=== PATIENT | female | born 1985 | race American Indian/Alaskan Native ===

== ENCOUNTER 2021-04-04 10:17 | Outpatient (CLI) | payer SELFPAY ==
[2021-04-04] MEDS ORDERED: LACTATED RINGERS 500 ML IV ONE (11:00)
[2021-04-04] MEDS ORDERED: TERBUTALINE 1 MG/1 ML INJ IVP ONE (11:23)
[2021-04-04 11:49] LABS: Basophils % (Auto) 0.2 % (0.0-1.8); Eosinophils # (Auto) 0.1 K/mm3 (0.0-0.4); Eosinophils % (Auto) 0.8 % (0.0-4.3); Hematocrit 47.5 % (30.3-42.9); Hemoglobin 15.4 gm/dl (10.1-14.3); Lymphocytes # (Auto) 1.7 K/mm3 (1.2-5.4); Lymphocytes % (Auto) 19.9 % (13.4-35.0); Mean Corpuscular HGB Conc 33 % (30-34); Mean Corpuscular Volume 85 fl (79-97); Monocytes # (Auto) 0.7 K/mm3 (0.0-0.8); Monocytes % (Auto) 7.8 % (0.0-7.3); Platelet Count 157 K/mm3 (140-440); Red Blood Count 5.61 M/mm3 (3.65-5.03)
--- NOTE | 2021-04-04 12:40 | Ultrasound Report ---
ULTRASOUND BIOPHYSICAL PROFILE, 04/04/2021 INDICATION / CLINICAL INFORMATION: Evaluate well-being. COMPARISON: None FINDINGS: BREATHING MOVEMENT = 2 GROSS BODY MOVEMENT = 2 TONE = 2 QUALITATIVE AMNIOTIC FLUID VOLUME = 2 TOTAL BIOPHYSICAL SCORE = 10/26 AMNIOTIC FLUID INDEX (cm) = 8.2 PRESENTATION: Cephalic. HEART RATE (beats per minute): 166 IMPRESSION: 1. biophysical profile = 10/26 Signer Name: Birgit Small MD Signed: 04/04/2021 12:36 PM Workstation Name: [id number]
--- NOTE | 2021-04-04 13:29 | Ultrasound Report ---
ULTRASOUND OBSTETRIC COMPLETE INDICATION / CLINICAL INFORMATION: ENEDINA, placenta location, EFW. Clinical Gestational Age (GA) in weeks, days: 36 weeks 0 days TECHNIQUE: Transabdominal. COMPARISON: None available. FINDINGS: NUMBER: Single PRESENTATION: cephalic PLACENTA: anterior and free of the os. No evidence of abruption. MATERNAL ADNEXA: No significant abnormality. AMNIOTIC FLUID VOLUME: normal AMNIOTIC FLUID INDEX (ENEDINA) in cm (if measured): 8.2 MEASUREMENTS: - Biparietal Diameter = 8.3 cm = 33 weeks 3 days - Head Circumference = 31.4 cm = 35 weeks 2 days - Abdominal Circumference = 29.3 cm = 33 weeks 2 days - Femur Length = 7.1 cm = 36 weeks 1 day - Estimated Weight (in grams, if calculated): 2408 - Heart Rate (beats per minute): 147 ADDITIONAL FINDINGS: None. PERCENTILE ESTIMATED WEIGHT (if calculated): Not calculated AVERAGE ULTRASOUND AGE (AUA) in weeks, days = 34 weeks 4 days IMPRESSION: 1. Single intrauterine with AUA of 34 weeks 4 days. 2. No significant sonographic abnormality, as above. 3. ENEDINA measures 8.2 cm. 4. Anterior placenta. No evidence of placental abruption. Signer Name: Polo Elena MD Signed: 04/04/2021 1:24 PM Workstation Name: [employer] [id number]
== END 2021-04-04 13:18 | disposition home or self-care (01) ==
LOC: TRG 10:17 → APU 10:19 → TRG 13:18
PROVIDERS: ATTEND Student in an Organized Health Care Education/Training Program
DX: O46.93 Antepartum hemorrhage, unspecified, third trimester (principal); O62.9 Abnormality of forces of labor, unspecified; O09.523 Supervision of elderly multigravida, third trimester; O99.213 Obesity complicating pregnancy, third trimester; E66.9 Obesity, unspecified; Z3A.34 34 weeks gestation of pregnancy
CPT/HCPCS: 36415; 59025; 76816; 76819; 85025; 86850; 86900; 86901; 96360; 96372; J3105; J7120

== ENCOUNTER 2021-04-05 07:49 | Inpatient (IN) | payer SELFPAY ==
[2021-04-05] MEDS ORDERED: BICITRA ORAL LIQD 30ML PO ONE (10:00)
[2021-04-05] MEDS ORDERED: METOCLOPRAMIDE 10 MG/2 ML INJ IV ONE (10:00)
[2021-04-05] MEDS ORDERED: FAMOTIDINE 20 MG/2 ML INJ IV ONE (10:00)
[2021-04-05] MEDS ORDERED: OXYTOCIN DRIP 30 UNITS/500 ML BAG IV SCH ×2 (10:00→20:00)
[2021-04-05] MEDS ORDERED: ceFAZolin/Water 2 GM/20 ML 2 GM/20 ML SYRINGE IV NR (10:00)
[2021-04-05] MEDS ORDERED: LACTATED RINGERS 1,000 ML IV SCH (10:00)
[2021-04-05] MEDS ORDERED: ONDANSETRON 4 MG/2 ML INJ ONE (10:19)
--- NOTE | 2021-04-05 10:34 | Anesthesia Day of Surgery ---
Anesthesia Day of Surgery - Day of Surgery Patient Examined: Yes Patient H&P Reviewed: Yes Patient is NPO: No (0600 risk explained) Beta Blockers: No Cardiac Clearance: No Pulmonary Clearance: No Zhang's Test: Negative
--- NOTE | 2021-04-05 10:37 | Anesthesia Consultation ---
Anesthesia Consult and Med Hx Date of service: 04/05/21 - Airway Anesthetic Teeth Evaluation: Poor ROM Head & Neck: Adequate Mental/Hyoid Distance: Adequate Mallampati Class: Class II Intubation Access Assessment: Good - Pulmonary Exam CTA: Yes - Cardiac Exam Cardiac Exam: RRR - Pre-Operative Health Status ASA Pre-Surgery Classification: ASA3 Proposed Anesthetic Plan: Spinal - Pulmonary Hx Smoking: No Hx Asthma: No Hx Respiratory Symptoms: No SOB: No COPD: No Home Oxygen Therapy: No Hx Pneumonia: No Hx Sleep Apnea: No - Cardiovascular System Hx Hypertension: No Hx Coronary Artery Disease: No Hx Heart Attack/AMI: No Hx Angina: No Hx Percutaneous Transluminal Coronary Angioplasty (PTCA): No Hx Cardia Arrhythmia: Yes Hx Pacemaker: No Hx Internal Defibrillator: No Hx Valvular Heart Disease: No Hx Heart Murmur: No Hx Peripheral Vascular Disease: No - Central Nervous System Hx Neuromuscular Disorder: No Hx Seizures: No CVA: No Hx Back Pain: No Hx Psychiatric Problems: No - Gastrointestinal Hx Ulcer: No Hx Gastroesophageal Reflux Disease: No - Endocrine Hx Renal Disease: No Hx End Stage Renal Disease: No Hx Cirrhosis: No Hx Liver Disease: No Hx Insulin Dependent Diabetes: No Hx Non-Insulin Dependent Diabetes: No Hx Thyroid Disease: No Hx Hypothyroidism: No Hx Hyperthyroidism: Yes - Hematic Hx Anemia: No Hx Sickle Cell Disease: No - Other Systems Hx Alcohol Use: No Hx Substance Use: No Hx Cancer: No Hx Obesity: Yes
[2021-04-05 11:00] LABS: Eosinophils % (Auto) 0.9 % (0.0-4.3); Hematocrit 45.8 % (30.3-42.9); Hemoglobin 14.7 gm/dl (10.1-14.3); Mean Corpuscular HGB Conc 32 % (30-34); Mean Corpuscular Volume 85 fl (79-97); Monocytes # (Auto) 0.7 K/mm3 (0.0-0.8); Monocytes % (Auto) 7.3 % (0.0-7.3); Red Blood Count 5.37 M/mm3 (3.65-5.03); Red Cell Distribution Width 13.7 % (13.2-15.2)
[2021-04-05 11:04] LABS: Lymphocytes % (Auto) 14.5 % (13.4-35.0)
[2021-04-05 11:05] LABS: Basophils % (Auto) 0.4 % (0.0-1.8); Eosinophils # (Auto) 0.1 K/mm3 (0.0-0.4); Lymphocytes # (Auto) 1.5 K/mm3 (1.2-5.4)
--- NOTE | 2021-04-05 11:35 | History and Physical Report ---
History of Present Illness Date of examination: 04/05/21 Chief complaint: contractions, vaginal bleeding History of present illness: Pt is a 35 year old MIGUEL 04/24/21 by 10 adele mendoza who presents with vaginal bleeding and contractions. During her evaluation in triage she was found to be 4 /70/-2. She denies leakage of fluid and reports good movement. She has had care initially in [place] with limited records available for review, followed by two visits with Dr Niels Mondragon with limited records available for review on the patient's phone. Her GBS status is unknown. Past History Past Medical History: thyroid disease (hypothyroidism on levothyroxine 50 mcg daily ) Past Surgical History: section Social history: - Obstetrical History Expected Date of Delivery: 04/24/21 Actual Gestation: 37 Week(s) 2 Day(s) : 5 Para: 1 Hx # Term Pregnancies: 0 Number of Pregnancies: 1 Spontaneous Abortions: 3 Induced : 0 Number of Living Children: 1 Medications and Allergies Allergies Allergy/AdvReac Type Severity Reaction Status Date / Time No Known Allergies Allergy Verified 04/05/21 08:09 Active Meds: Active Medications Fentanyl (Fentanyl 100 Mcg/2 Ml Inj) 50 mcg IV ONCE ONE Stop: 04/05/21 11:34 Lactated Ringer's (Lactated Ringers) 1,000 mls @ 2,250 mls/hr IV PREOP KIM Stop: 04/06/21 10:27 Last Admin: 04/05/21 10:40 Dose: 2,250 mls/hr Oxytocin/Sodium Chloride (Pitocin/Ns 30 Unit/500ml) 30 units in 500 mls @ 0 mls/hr IV TITR KIM; Protocol Cefazolin Sodium (Ancef/Sterile Water 2 Gm/20 Ml) 2 gm in 20 mls @ 80 mls/hr IV PREOP NR; Protocol Stop: 04/06/21 23:59 Review of Systems All systems: negative - Vital Signs Vital signs: Vital Signs Pulse Resp BP Pulse Ox 110 H 18 110/74 96 04/05/21 09:54 04/05/21 09:54 04/05/21 09:54 04/05/21 09:54 Temp Pulse Resp BP Pulse Ox 98.1 F 109 H 18 110/74 94 04/05/21 10:12 04/05/21 11:32 04/05/21 09:54 04/05/21 09:54 04/05/21 11:32 - Physical Exam Breasts: Positive: deferred Abdomen: Positive: soft (obese, gravid ) Uterus: Positive: enlarged (gravid ) Extremities: Positive: edema (trace) - Obstetrical FHR: auscultation normal Uterine Contraction Monitor Mode: External Cervical Dilatation: 4 (per RN ) Uterine Contraction Pattern: Irregular Uterine Tone Measurement Phase: Resting Uterine Contraction Intensity: Strong/Firm Results Result Diagrams: 04/05/21 09:41 Abnormal lab results 04/05/21 Range/Units 09:41 RBC 5.37 H (3.65-5.03) M/mm3 Hgb 14.7 H (10.1-14.3) gm/dl Hct 45.8 H (30.3-42.9) % MCH 27 L (28-32) pg Seg Neutrophils % 76.9 H (40.0-70.0) % Seg Neutrophils # 7.9 H (1.8-7.7) K/mm3 All other labs normal. Assessment and Plan A: IUP at 37w2d Latent Labor Limited Care Hypothyroidism on Levothyroxine 50 mcg daily, last dose 04/05/21 H/o labor and delivery Previous x 1 Obesity GBS unknown Last meal: 6 am 04/05/21 P: Proceed with repeat section and other indicated procedures ~ 8 hrs after food ingestion. Plan surgery sooner for maternal or indications. Continue to closely monitor clinical status
[2021-04-05 12:16] LABS: Platelet Count 171 K/mm3 (140-440)
[2021-04-05] MEDS ORDERED: fentaNYL 100 MCG/2 ML INJ IV ONE ×2 (12:30→14:00)
--- NOTE | 2021-04-05 13:24 | Event Note ---
Date: 04/05/21 On-call physician just informed that this surgery has been delayed, secondary to an emergent section being performed by another provider.
[2021-04-05] MEDS ORDERED: LACTATED RINGERS 1,000 ML ONE (15:33)
[2021-04-05] MEDS ORDERED: PHENYLEPHRINE/NS 1,000 MCG/10 ML SYRINGE (OR USE) IV ONE (15:35)
[2021-04-05] MEDS ORDERED: CARBOPROST TROMETHAMINE 250 MCG/1 ML INJ IM ONE (15:52)
[2021-04-05] MEDS ORDERED: METHYLERGONOVINE MALEATE 0.2 MG/ML VIAL IM ONE ×2 (15:52→16:20)
[2021-04-05] MEDS ORDERED: miSOPROStol 200 MCG TAB ONE (15:57)
[2021-04-05] MEDS ORDERED: OXYTOCIN 10 UNIT/1 ML INJ ONE (16:23)
[2021-04-05] MEDS ORDERED: dexAMETHasone 20 MG/5 ML VIAL ONE (16:40)
[2021-04-05] MEDS ORDERED: BUPIVACAINE/PF (0.25%) 2.5 MG/ML 30 ML VIAL INFILTRATI ONE ×2 (16:40)
[2021-04-05] MEDS ORDERED: ACETAMINOPHEN 500 MG TAB ONE (17:07)
--- NOTE | 2021-04-05 17:30 | Progress Note ---
Spinal Anesthesia Block - Spinal Anesthesia Block Start Time: 15:00 Stop Time: 15:04 Performed by:: LYNETTE JON Procedure: Patient IDed, H&P reviewed, all questions and concerns were answered, and consent was signed. Timeout was performed at bedside. Patient in sitting position. Sterile prep and drape was performed. [3] ml of 1% lidocaine skin wheal at L[3]- L [4]. Needle introducer advanced. 24 gauge spinal needle advanced. Clear, free flowing CSF. negative blood, negative paresthesia. Spinal dose given. All needles removed. Patient tolerated procedure.
--- NOTE | 2021-04-05 17:38 | Procedure Note ---
OB Delivery Note - Delivery Date of Delivery: 04/05/21 Surgeon: STEVEN RAY Estimated blood loss: other (1399 mL) - Section Preop diagnosis: repeat , other (Vaginal Bleeding, Labor ) Postop diagnosis: same section procedure: section, repeat low transverse Disposition: PACU Complications: intra-op hemorrhage, uterine atony Narrative: Please see operative report - Infant A at 1 minute: 8 at 5 minutes: 9 Infant Gender: Female (2900g (6lb 6oz) @ 1525 pm)
--- NOTE | 2021-04-05 17:40 | Operative Report ---
Operative Report Operative Report: Date of procedure: April 05, 2021 Preoperative diagnosis: 1) IUP at 37w2d 2) Previous x 1 3) Vaginal Bleeding 4) Latent Labor Postoperative diagnosis: Same 5) Uterine Atony 6) Intraoperative Hemorrhage Procedure: Repeat low transverse section Surgeon: Maryellen Lainez M.D. Anesthesia: Regional Findings: 1) Viable female , Apgars 8 and 9, weight 2900 g, (6 lb 6 oz) in cephalic presentation. 2) Fibroid uterus; Normal appearing ovaries and tubes Estimated blood loss: 1399 mL IV fluids: 2900 mL Urine output: 300 mL, blood tinged prior to the procedure, and blood tinged at the end of the procedure Drains: Beyer to gravity Specimens: Placenta to pathology Complications:None. Counts correct x 3 Disposition: Stable to PACU Indication for procedure: Pt is a 35 year old [place] female at 37w2d with one prior presents in latent labor, then began to have vaginal bleeding. The decision was made to proceed with section. Operation in detail: After the risks, benefits, alternatives and complications were explained to the patient she gave informed consent for the procedure. She was subsequently taken to the operating room where regional anesthesia was noted to be adequate. She was placed in the dorsal supine position with leftward tilt and prepped and draped in a normal sterile fashion. heart tones were noted prior to incision. A timeout was performed. A Pfannenstiel skin incision was made with the knife and carried down to the lay er of the fascia with the Bovie. The fascia was incised in the midline and the fascial incision was extended bilaterally with the Bovie. The fascial incision was then stretched. The rectus muscles were then in the midline and partially transected for adequate visualization. The peritoneum was then entered bluntly. The peritoneal incision was extended with good visualization of the bladder. The peritoneal incision was then stretched. An Juan retractor was placed. The bladder blade was then placed. A transverse incision was made in the lower uterine segment with a knife and extended bilaterally with the bandage scissors. Blood was visible at the time of hysterotomy. head delivered with some difficulty, followed by shoulders and body. bulb suctioned at delivery. Cord clamped and cut. handed to NICU staff in attendance. Cord blood was collected. The placenta was then delivered manually. Uterine atony was noted. The patient received pitocin and two dose of Methergine. Uterine tone was improved. The uterus was then exteriorized and cleared of all clots and debris. The hysterotomy was then reapproximated with 0 Monocryl in a running locked fashion. A second layer of the same suture was used in imbricating fashion. Fiugure of eight sutures of 0 Monocryl were used to obtain hemostasis. 2-0 chromic was in a figure of eight fashion to obtain hemostasis. One 1.5 cm thick adhesion to the anterior surface of the uterus was lysed with cautery. The hysterotomy was inspected and hemostasis was noted. The gutters were irrigated and cleared of all clots and debris. The uterus was placed back into the peritoneal cavity. The hysterotomy was again inspected and noted to be hemostatic. Surgicel was placed over the hysterotomy. The Juan retractor was removed. The peritoneum was reapproximated with 0 Monocryl incorporating the rectus muscles. Surgicel was placed over the rectus muscles. The fascia was reapproximated with 0 Vicryl in a running fashion. The subcutaneous tissue was reapproximated with 3-0 Vicryl in a running fashion. The skin was reapproximated with 4-0 Monocryl in a subcuticular fashion. The incision was then covered with steri strips and a pressure dressing. The procedure was then ended. The patient tolerated the procedure well and was taken to the PACU in stable condition. All instrument, lap, and needle counts were correct 3. The patient received Misoprostol 800 mcg per rectum after the procedure.
[2021-04-05] MEDS ORDERED: MORPHINE 4 MG/1 ML INJ IV PRN (19:29)
[2021-04-05] MEDS ORDERED: WITCH HAZEL/ GLYCERIN PAD TP PRN (19:29)
[2021-04-05] MEDS ORDERED: ONDANSETRON 4 MG/2 ML INJ IV PRN (19:29)
[2021-04-05] MEDS ORDERED: MORPHINE 2 MG/1 ML INJ IV PRN (19:29)
[2021-04-05] MEDS ORDERED: LANOLIN/ZINC/DIMETHICONE (LANSINOH) 7 GM TP PRN (19:29)
[2021-04-05] MEDS ORDERED: NALOXONE 0.4 MG/1 ML INJ IV PRN (19:29)
[2021-04-05] MEDS ORDERED: D5W/LACTATED RINGERS 1,000 ML IV SCH (20:00)
[2021-04-05] MEDS: KETOROLAC 30 MG/1 ML INJ IV SCH (20:05)
[2021-04-05 21:54] LABS: Hematocrit 41.4 % (30.3-42.9); Hemoglobin 13.3 gm/dl (10.1-14.3)
[2021-04-05 22:13] LABS: INR 0.94 (0.87-1.13); Partial Thromboplastin Time 28.7 Sec. (24.2-36.6)
[2021-04-05] MEDS: ceFAZolin/NS 1 GM/50 ML 1 GM/50 ML BAG IV SCH (23:37)
[2021-04-06] MEDS: IBUPROFEN 800 MG TAB PO SCH ×4 (00:44→20:59)
[2021-04-06] MEDS: KETOROLAC 30 MG/1 ML INJ IV SCH ×3 (02:56→14:00)
[2021-04-06] MEDS: oxyCODONE /ACETAMINOPHEN 5-325MG TAB PO PRN ×3 (05:28→20:22)
--- NOTE | 2021-04-06 08:05 | Progress Note ---
Assessment and Plan A: POD#1 s/p repeat section at term complicated by suspected placental abruption, uterine atony and intraop hemorrhage Fibroid Uterus Obesity AMA P: Follow up postop H/H Routine postop care Subjective - Subjective Date of service: 04/06/21 Principal diagnosis: POD#1 s/p repeat section at term, Intraop hemorrhage Interval history: No complaints. No flatus. Voiding. Decreasing lochia. No nausea Patient reports: voiding normally, pain well controlled, ambulating normally, no dizzy ambulation, no flatus, no bowel movement : doing well Objective - Vital Signs Latest vital signs: Vital Signs Temp Pulse Resp BP BP Pulse Ox Pulse Ox 04/06/21 05:28 20 04/06/21 04:25 98.4 F 76 18 118/64 100 04/06/21 02:56 20 04/06/21 00:30 98.2 F 89 20 106/72 99 04/05/21 23:40 18 04/05/21 20:05 20 04/05/21 19:45 98.2 F 90 20 109/69 98 98 04/05/21 18:15 99.1 F 97 H 27 H 121/81 97 04/05/21 18:00 99.7 F H 95 H 13 124/82 97 04/05/21 17:45 99.7 F H 96 H 23 116/84 97 04/05/21 17:30 99.7 F H 91 H 25 H 120/81 98 04/05/21 17:25 99.7 F H 94 H 25 H 125/84 97 04/05/21 17:20 99.7 F H 93 H 20 117/78 97 04/05/21 14:45 103 H 97 04/05/21 14:40 114 H 97 04/05/21 14:35 111 H 97 04/05/21 14:30 99 H 96 04/05/21 14:25 101 H 96 04/05/21 14:20 101 H 96 04/05/21 14:15 108 H 97 04/05/21 14:10 99 H 96 04/05/21 14:05 99 H 96 04/05/21 14:00 116 H 98 04/05/21 13:55 111 H 98 04/05/21 13:50 107 H 96 04/05/21 13:45 109 H 96 04/05/21 13:43 107 H 94 04/05/21 13:40 109 H 102/56 95 04/05/21 13:35 104 H 100 04/05/21 13:34 16 04/05/21 13:30 104 H 98 04/05/21 13:25 101 H 98 04/05/21 13:20 98 H 98 04/05/21 13:15 111 H 96 04/05/21 13:10 120 H 96 04/05/21 12:49 101 H 98 04/05/21 12:44 113 H 98 04/05/21 12:39 104 H 96 04/05/21 12:34 110 H 98 04/05/21 12:32 111 H 94 04/05/21 12:29 103 H 97 04/05/21 12:24 107 H 98 04/05/21 12:19 101 H 97 04/05/21 12:14 105 H 97 04/05/21 12:09 101 H 97 04/05/21 12:04 105 H 97 04/05/21 11:59 104 H 96 04/05/21 11:54 101 H 97 04/05/21 11:49 106 H 97 04/05/21 11:44 108 H 96 04/05/21 11:39 98 H 96 04/05/21 11:34 104 H 96 04/05/21 11:32 109 H 94 04/05/21 11:29 109 H 96 04/05/21 11:24 111 H 97 04/05/21 11:19 112 H 97 04/05/21 11:14 107 H 97 04/05/21 11:09 104 H 97 04/05/21 11:04 105 H 97 04/05/21 10:59 106 H 97 04/05/21 10:54 116 H 97 04/05/21 10:47 120 H 99 04/05/21 10:42 108 H 96 04/05/21 10:37 107 H 97 04/05/21 10:32 96 H 98 04/05/21 10:12 98.1 F 04/05/21 09:54 110 H 18 110/74 96 Intake and Output 04/05/21 04/06/21 04/06/21 22:59 06:59 14:59 Intake Total 3400 120 Output Total 700 550 Balance 2700 -430 Intake: IV 3400 Oral 120 Output: Urine 700 550 Indwelling Catheter 550 Other: Total, Intake Amount 120 Total, Output Amount 250 Estimated Blood Loss 1,399 - Exam Breasts: Present: deferred Abdomen: Present: soft, distention (moderate ) Uterus: Present: fundal height at umbilicus Extremities: Present: normal. Absent: tenderness Incision: Present: dressed - Labs Labs: Abnormal lab results 04/05/21 Range/Units 09:41 RBC 5.37 H (3.65-5.03) M/mm3 Hgb 14.7 H (10.1-14.3) gm/dl Hct 45.8 H (30.3-42.9) % MCH 27 L (28-32) pg Seg Neutrophils % 76.9 H (40.0-70.0) % Seg Neutrophils # 7.9 H (1.8-7.7) K/mm3
[2021-04-06] MEDS: SIMETHICONE 80 MG CHEW TAB PO PRN (08:35)
[2021-04-06] MEDS: FERROUS SULFATE 325 MG TAB PO SCH (08:35)
[2021-04-06] MEDS: ceFAZolin/NS 1 GM/50 ML 1 GM/50 ML BAG IV SCH (08:47)
[2021-04-06] MEDS ORDERED: ceFAZolin/NS 1 GM/50 ML 1 GM/50 ML BAG IV SCH (09:00)
[2021-04-06 11:11] LABS: Hematocrit 38.2 % (30.3-42.9); Hemoglobin 12.2 gm/dl (10.1-14.3)
--- NOTE | 2021-04-06 15:32 | Post Anesthesia Evaluation ---
- Post Anesthesia Evaluation Patient Participated: Yes Airway Patent: Yes Stable Respiratory Function: Yes Nausea/Vomiting: No Temp > 96.8F: Yes Pain Manageable: Yes Adequeate Hydration: Yes Anesthesia Complications: No Block Receding Appropriately: Yes Patient on Ventilator: No
[2021-04-06] MEDS ORDERED: MEASLES, MUMPS & RUBELLA 12,500 UNIT/0.5 ML VACCINE SUB-Q ONE (19:19)
[2021-04-06] MEDS ORDERED: TETANUS,DIPH,PERTUSS(ACELL) VACCINE 0.5 ML SYRINGE IM ONE (19:19)
[2021-04-07] MEDS: IBUPROFEN 800 MG TAB PO SCH ×3 (03:26→12:25)
[2021-04-07] MEDS: SIMETHICONE 80 MG CHEW TAB PO PRN (05:06)
[2021-04-07] MEDS ORDERED: TETANUS,DIPH,PERTUSS(ACELL) VACCINE 0.5 ML SYRINGE IM ONE (08:00)
--- NOTE | 2021-04-07 08:09 | Progress Note ---
Assessment and Plan A:POD#2 s/p R. C/S at term P:Continue with routine care with discharge anticipated this evening Subjective - Subjective Principal diagnosis: POD#2 s/p repeat section at term, Intraop hemorrhage Interval history: Patient is feeling well and is without complaints. She reports deceasing lochia, adequate pain control and no issues with ambulation. She expresses a desire to go home today. Patient reports: appetite normal, voiding normally, pain well controlled, flatus, no bowel movement [place]: doing well Objective - Vital Signs Latest vital signs: Vital Signs Temp Pulse Resp BP BP Pulse Ox Pulse Ox 04/07/21 03:26 20 04/07/21 00:41 97.4 F L 103 H 20 104/72 99 04/06/21 20:25 99 04/06/21 20:22 18 04/06/21 15:15 98 F 92 H 18 107/54 99 04/06/21 13:10 97.9 F 92 H 18 108/65 96 04/06/21 09:59 97 04/06/21 08:35 98.2 F 96 H 18 101/71 101/71 99 Intake and Output 04/06/21 04/07/21 04/07/21 23:59 07:59 15:59 Intake Total 240 480 Output Total 400 Balance -160 480 Intake: Oral 240 Intake, Free Water 480 Output: Urine 400 Void 400 Other: Total, Intake Amount 240 Total, Output Amount 400 # Voids Void 2
--- NOTE | 2021-04-07 08:09 | Discharge Summary ---
Providers - Providers Date of Admission: 04/05/21 15:45 Date of discharge: 04/07/21 Attending physician: STEVEN RAY 04/05/21 19:29 Consult to Take Up Supervisor [CONS] Routine Reason For Exam: Primary care physician: [facility] CE[facility]UBER Hospitalization Reason for admission: active labor, vaginal bleeding Procedure: repeat low transverse Incision: normal, dry, intact Other procedures: none complications: none Discharge diagnosis: IUP at term delivered [place] baby: female Hospital course: Pt presented to L&D in active labor with vaginal bleeding, she went on to have a Repeat C/S and her course was uncomplicated. Condition at discharge: Good Disposition: HOME / SELF CARE / HOMELESS Plan - Discharge Medications Prescriptions: Ibuprofen [Motrin] 800 mg PO Q8HR PRN #30 tablet PRN Reason: Pain, Moderate (4-6) oxyCODONE /ACETAMINOPHEN [Percocet 5/325] 1 tab PO Q6HR PRN #30 tablet PRN Reason: Pain - Provider Discharge Summary Activity: no sex for 6 weeks, no heavy lifting 4 weeks, no strenuous exercise Diet: routine Instructions: routine Additional instructions: [] Smoking cessation referral if applicable(refer to patient education folder for contact #) [] Refer to [facility]'s [facility] Booklet Call your doctor immediately for: * Fever > 100.5 * Heavy vaginal bleeding ( >1 pad per hour) * Severe persistent headache * Shortness of breath * Reddened, hot, painful area to leg or breast * Drainage or odor from incision. * Keep incision clean and dry at all times and follow doctor's instructions regarding bathing/showering - Follow up plan Follow up: ELISA HERNANDEZ ASSISTANT SITE MANAGER [Advanced Practice Nurse] - 14 Days
[2021-04-07 08:38] VITALS: BP 126/88
[2021-04-07] MEDS: FERROUS SULFATE 325 MG TAB PO SCH (10:13)
[2021-04-07] MEDS: oxyCODONE /ACETAMINOPHEN 5-325MG TAB PO PRN ×2 (10:16→15:44)
[2021-04-07] MEDS ORDERED: MEASLES, MUMPS & RUBELLA 12,500 UNIT/0.5 ML VACCINE SUB-Q ONE (16:30)
== END 2021-04-07 16:17 | disposition home or self-care (01) | DRG 787 ==
LOC: TRG 07:49 → APU 07:50 → TRG 15:35 → APU 15:45 → OB 19:58
PROVIDERS: ADMIT Obstetrics & Gynecology; ATTEND Obstetrics & Gynecology
PROC: 10D00Z1 Extraction of Products of Conception, Low, Open Approach (ICD-10-PCS; principal; 2021-04-05)
PROC: 3E0234Z Introduction of Serum, Toxoid and Vaccine into Muscle, Percutaneous Approach (ICD-10-PCS; 2021-04-06)
PROC: 3E0134Z Introduction of Serum, Toxoid and Vaccine into Subcutaneous Tissue, Percutaneous Approach (ICD-10-PCS; 2021-04-06)
DX: O34.211 Maternal care for low transverse scar from previous cesarean delivery (principal); O72.1 Other immediate postpartum hemorrhage; Z3A.37 37 weeks gestation of pregnancy; Z37.0 Single live birth; O99.284 Endocrine, nutritional and metabolic diseases complicating childbirth; Z20.822 Contact with and (suspected) exposure to COVID-19; E03.9 Hypothyroidism, unspecified; O99.214 Obesity complicating childbirth; O34.13 Maternal care for benign tumor of corpus uteri, third trimester; Z23 Encounter for immunization
CPT/HCPCS: 36415; 59025; 85014; 85018; 85025; 85610; 85730; 86592; 86850; 86900; 86901; 88307; 90707; 90715; 96360; G0378; J3490; J7060; J7121; J0690; J1100; J1885; J2270; J2370; J2405; J2590; J2765; J3010; J7120; U0003